=== PATIENT | male | born 1960 | race Caucasian/White ===

== ENCOUNTER 2018-03-29 07:55 | Day surgery (SDC) | payer BC, MEDICAID ==
--- NOTE | 2018-03-29 07:40 | PDANEPAE ---
ANE Past Medical History - Cardiovascular History Hx Hypertension: Yes Hx Arrhythmias: No Hx Chest Pain: No Hx Coronary Artery / Peripheral Vascular Disease: No Hx CHF / Valvular Disease: No Hx Palpitations: No - Pulmonary History Hx COPD: No Hx Asthma/Reactive Airway Disease: No Hx Recent Upper Respiratory Infection: No Hx Oxygen in Use at Home: No Hx Sleep Apnea: No Sleep Apnea Screening Result - Last Documented: Positive Pulmonary History Comment: QUIT 03/22/18 - Neurologic History Hx Cerebrovascular Accident: No Hx Seizures: No Hx Dementia: No - Endocrine History Hx Diabetes: Yes Endocrine History Comment: NIDDM CONTROLLED WITH DIET - Renal History Hx Renal Disorders: Yes Renal History Comment: CKD - Liver History Hx Hepatic Disorders: No - Neurological & Psychiatric Hx Hx Neurological and Psychiatric Disorders: No - Cancer History Hx Cancer: No - Congenital Disorder History Hx Congenital Disorders: No - GI History Hx Gastrointestinal Disorders: No - Other Health History Other Health History: INTERMITTENT GOUT. ARTHRITIS. LOWER BOTTOM TEETH CEMENT ON BACK SIDE TO HOLD IN PLACE - Chronic Pain History Chronic Pain: No - Surgical History Prior Surgeries: RT KNEE SCOPE. ENRIQUE ANKLE SCOPE. TONSILLECTOMY ANE Review of Systems Review of Systems: - Exercise capacity METS (RN): 4 METS ANE Patient History - Allergies Allergies/Adverse Reactions: prednisone Allergy (Verified 03/28/18 14:39) ELEVATES BLOOD SUGAR - Home Medications Home medications: home medication list seen and reviewed Home Medications: Allopurinol 300 MG (RX) DAILY 03/28/18 [Last Taken Unknown] Atorvastatin Calcium DAILY 03/28/18 [Last Taken Unknown] Calcitriol DAILY 03/28/18 [Last Taken Unknown] Calcium Acetate TID 03/28/18 [Last Taken Unknown] Herbals/Supplements -Info Only DAILY 03/28/18 [Last Taken Unknown] Iron DAILY 03/28/18 [Last Taken Unknown] Losartan Potassium DAILY 03/28/18 [Last Taken Unknown] - NPO status NPO Status: no food or drink >8 hours - Anes Hx Anes Hx: no prior problems - Smoking Hx Smoking Status: Former smoker - Family Anes Hx Family Anes Hx: none ANE Labs/Vital Signs - Vital Signs Height: 175.26 cm Weight: 78.018 kg ANE Physical Exam - Airway Neck exam: FROM Mallampati Score: Class 2 Mouth exam: normal dental/mouth exam - Pulmonary Pulmonary: clear to auscultation - Cardiovascular Cardiovascular: regular rate and rhythym - ASA Status ASA Status: III ANE Anesthesia Plan Anesthesia Plan: GA w LMA
--- NOTE | 2018-03-29 08:08 | PDHPUP ---
History & Physical Update H&P update statement: This history and physical update is based on an assessment of the patient which was completed after admission or registration (within 24 hours), but prior to the surgery/procedure. H&P update: H&P reviewed & patient examined, no change in patient's condition since H&P completed
[2018-03-29] MEDS ORDERED: ceFAZolin 2 GM/DEXTROSE 100 ML IV ONE (08:10)
[2018-03-29] MEDS ORDERED: LR 1,000 ML IV ONE (08:12)
[2018-03-29] MEDS ORDERED: BUPIVACAINE 0.5% 30 ML SDV ONE (08:28)
[2018-03-29] MEDS ORDERED: THROMBIN (BOVINE) 5,000 UNIT VIAL TP ONE (08:28)
[2018-03-29] MEDS ORDERED: PAPAVERINE HCL 60 MG/2 ML SDV ONE (08:28)
[2018-03-29] MEDS ORDERED: THROMBIN (BOVINE) 20,000 UNIT SPRAY TP ONE (08:28)
[2018-03-29] MEDS ORDERED: fentaNYL 100 MCG/2 ML INJ ONE ×2 (08:29→09:22)
[2018-03-29] MEDS ORDERED: PROPOFOL 200 MG/20 ML VIAL ONE (08:29)
[2018-03-29] MEDS ORDERED: PROTAMINE SULFATE 50 MG/5 ML VIAL IVP ONE (08:29)
[2018-03-29] MEDS ORDERED: HEPARIN 10,000 UNIT/10 ML MDV (1,000 UNIT/ML) ONE (08:32)
[2018-03-29] MEDS ORDERED: PHENYLEPHRINE 10 MG/ML SDV ONE (09:41)
[2018-03-29] MEDS ORDERED: HYDROCODONE/APAP 5/325 TAB PO PRN (10:18)
[2018-03-29] MEDS ORDERED: LR 500 ML IV PRN (10:18)
[2018-03-29] MEDS ORDERED: ALBUTEROL 3 ML DEYVIAL IH PRN (10:18)
[2018-03-29] MEDS ORDERED: fentaNYL 100 MCG/2 ML INJ IVP PRN (10:18)
[2018-03-29] MEDS ORDERED: oxyCODONE IR 5 MG TAB PO PRN (10:18)
[2018-03-29] MEDS ORDERED: PROMETHAZINE HCL 25 MG/ML INJ IVP PRN (10:18)
[2018-03-29] MEDS ORDERED: MEPERIDINE 25 MG/0.5 ML AMP IVP PRN (10:18)
[2018-03-29] MEDS ORDERED: METOCLOPRAMIDE 10 MG/2 ML VIAL IVP PRN (10:18)
[2018-03-29] MEDS ORDERED: DIAZEPAM 5 MG/ML 1 ML SYR IVP PRN (10:18)
[2018-03-29] MEDS ORDERED: HYDROmorphONE/DILAUDID 2 MG/ML INJ IVP PRN (10:18)
[2018-03-29] MEDS ORDERED: NALOXONE HCL 0.4 MG/ML INJ IVP PRN (10:18)
[2018-03-29] MEDS ORDERED: LABETALOL HCL 5 MG/ML 20 ML MDV IVP PRN (10:18)
[2018-03-29] MEDS ORDERED: ONDANSETRON 4 MG/2 ML VIAL IVP PRN (10:18)
[2018-03-29] MEDS ORDERED: PHENYLEPHRINE HCL 100 MCG/ML SYR ONE (10:22)
[2018-03-29] MEDS ORDERED: ONDANSETRON 4 MG/2 ML VIAL ONE (10:22)
--- NOTE | 2018-03-29 10:37 | POSTOPPROG ---
Post Op Note Date of Operation: 03/29/18 Surgeon: Nestor Gleason Engine Research Engineer: Kylie Anesthesiologist: Kym Anesthesia: GET(General Endotracheal) Pre-op Diagnosis: ESRD Post-op Diagnosis: same Indication: same, need for dialysis Procedure: LUE radiocephalic AVF creation, ligation of 2 collateral vessels Findings: strong thrill intraoperatively Inf/Abcess present in the surg proc area at time of surgery?: No Depth: Deep Incisional (Fascial) EBL: Minimal
--- NOTE | 2018-03-29 11:02 | POSTANESTH ---
Post Anesthetic Evaluation Cardiovascular Status: Normal, Stable Respiratory Status: Normal, Stable Level of Consciousness/Mental Status: Can Participate in Eval Pain Control: Adequate, Prn Tx Ordered Nausea/Vomiting Control: Adequate, Prn Tx Ordered Complications Possibly Related to Anesthesia: None Noted
[2018-03-29 11:34] VITALS: BP 122/73
--- NOTE | 2018-03-30 11:58 | GOP ---
DATE OF OPERATION: SURGEON: Nestor Glesaon MD HOSPITAL NURSE LIAISON: Chani Espinal NP ANESTHESIOLOGIST: Karolina Mejía MD PREOPERATIVE DIAGNOSIS: Chronic renal failure. POSTOPERATIVE DIAGNOSIS: 1. Chronic renal failure. PROCEDURE PERFORMED: 1. Left arm ultrasound vein mapping. 2. Left radiocephalic AV fistula. 3. Ligation of collateral veins with ultrasound guidance. FINDINGS: The patient was found to have a good cephalic vein and an excellent fistula. He had some large collateral veins which were ligated as well. ESTIMATED BLOOD LOSS: Negligible. DESCRIPTION OF PROCEDURE: The patient was taken to the operating room where he received a satisfacto ry general endotracheal anesthesia. Placed in supine position with his left arm outstretched on an a rm board, prepped and draped in the usual sterile fashion. A vertical incision was made over the rad ial artery, this was dissected free and surrounded with vessel loops. The cephalic vein was then dis sected free underneath the radial flap and was then brought over to the radial artery for a side-to-s sandra anastomosis, which was then created with a running 6-0 Prolene suture creating an 8 mm anastomosi s. The distal vein was then doubly ligated and divided. Flow was first established through the AV f istula, then back down the hand. Flow to the hand was preserved with a good flow and bruit in the fi stula. The patient had been systemically heparinized. The heparin was reversed with protamine. The wound was infiltrated with 0.5% Marcaine and then closed in layers using 3-0 Vicryl for the subcutan eous tissue a 4-0 Monocryl subcuticular stitch to the skin. 2 large collateral veins were then isola dolyl with separate incisions and ligated with 2-0 silk ties. Those wounds were also infiltrated with 0.5% Marcaine and closed with 4-0 Monocryl subcuticular sutures. He tolerated the procedure well. Minnie bahena was taken to the recovery care room in good condition. There were no complications. Copy requested to: Dr Lois Hays /[id number]/MODL
== END 2018-03-29 11:45 | disposition home or self-care (01) ==
LOC: FSGY 07:55
PROVIDERS: ATTEND Surgery
PROC: 031C0AF Bypass Left Radial Artery to Lower Arm Vein with Autologous Arterial Tissue, Open Approach (ICD-10-PCS; principal; 2018-03-29 09:00)
DX: I12.0 Hypertensive chronic kidney disease with stage 5 chronic kidney disease or end stage renal disease (principal); N18.6 End stage renal disease; E11.9 Type 2 diabetes mellitus without complications
CPT/HCPCS: J0690; J1644; J2370; J2405; J2440; J2704; J2720; J3010